=== PATIENT | male | born 1955 | race Caucasian/White ===

== ENCOUNTER 2017-07-15 16:29 | Emergency (ER) | payer OTHER ==
[~2017-07-15] VITALS: Ht 167.6 cm; Wt 80.0 kg
[2017-07-15 16:31] VITALS: BP 132/81; PULSE 64; RESP 16; TEMP 98.4; O2SAT 98
[2017-07-15] MEDS ORDERED: BUSP10TA PO (18:18)
[2017-07-15] MEDS ORDERED: DONE5TAB7 PO (18:18)
[2017-07-15] MEDS ORDERED: BUPR100T4 PO (18:18)
[2017-07-15] MEDS ORDERED: CHOL100025 CHEW (18:18)
[2017-07-15] MEDS ORDERED: PRAM0.25 PO (18:22)
[2017-07-15] MEDS ORDERED: TRAM50TA PO (18:22)
[2017-07-15] MEDS ORDERED: DULO1CAP3 PO (18:22)
[2017-07-15] MEDS ORDERED: SIMV20TA PO (18:22)
[2017-07-15] MEDS ORDERED: FLUT50SP EACH NARE (18:22)
[2017-07-15] MEDS ORDERED: PREG300 PO (18:22)
[2017-07-15] MEDS ORDERED: REBI44IN SQ (18:22)
--- NOTE | 2017-07-15 18:28 | PD ---
HPI Chief Complaint: Head Injury Time Seen by Provider: 18:03 Travel History International Travel<30 days: No Contact w/Intl Traveler<30days: No Traveled to known affect area: No History of Present Illness HPI 62-year-old male presents for evaluation after mechanical fall. He reports that he stayed up late last night and at 3 in the morning he was sitting in a stool at home when he fell asleep. He fell to the ground and hit his head against the ground. He is complaining of a headache, mild neck pain and right shoulder pain. Pain is an aching pain which is constant, no aggravating or alleviating factors. He had some dizziness this morning without resolved. Denies any blurred vision, amnesia, nausea, vomiting, numbness tingling or weakness. He is not on any anticoagulants. He has no other complaints at this time. PFSH Past Medical History Autoimmune Disease: Yes (MULTIPLE SCLEROSIS) Anxiety: Yes Depression: Yes High Cholesterol: Yes Diabetes: Yes Patient Takes Glucophage: No GERD: Yes Medical other: Yes (KIDNEY DISEASE, BPH) Neurologic: Yes (PERIPHERAL NERVE DISEASE) Past Surgical History Surgical History: No Previous Surgery Social History Alcohol Use: No Tobacco Use: No Substance Use: No Allergies-Medications (Allergen,Severity, Reaction): Coded Allergies: No Known Allergies (Unverified , 07/15/17) Reported Meds & Prescriptions Reported Meds & Active Scripts Active Reported Tramadol (Tramadol HCl) 50 Mg Tab 50 Mg PO Q6H PRN Simvastatin 20 Mg Tab 20 Mg PO DAILY Lyrica (Pregabalin) 300 Mg Cap 300 Mg PO BID Pramipexole (Pramipexole Dihydrochloride) 0.25 Mg Tab 0.25 Mg PO HS Rebif Inj (Interferon Beta 1a) 44 Mcg/0.5 Ml Syr 44 Mcg SQ Fluticasone Nasal [place] 50 Mcg/Act Naspr 50 Mcg EACH NARE BID 50 mcg/spray Duloxetine DR (Duloxetine HCl) 60 Mg Capdr 60 Mg PO DAILY Donepezil 5 Mg Tab 5 Mg PO DAILY Vitamin D3 (Cholecalciferol) 1,000 Unit Chew 1,000 Units CHEW DAILY Buspirone (Buspirone HCl) 10 Mg Tab 20 Mg PO TID Bupropion HCl 100 Mg Tab 200 Mg PO BID Review of Systems Except as stated in HPI: all other systems reviewed are Neg Physical Exam Narrative GENERAL: Well-developed well-nourished male in no acute distress SKIN: Warm and dry. HEAD: Hematoma noted to the left forehead. Normocephalic. EYES: Pupils equal and round reactive to light extraocular muscles are intact. No scleral icterus. No injection or drainage. ENT: No nasal bleeding or discharge. Mucous membranes pink and moist. NECK: Trachea midline. No JVD. CARDIOVASCULAR: Regular rate and rhythm. No murmur appreciated. RESPIRATORY: No accessory muscle use. Clear to auscultation. Breath sounds equal bilaterally. GASTROINTESTINAL: Abdomen soft, non-tender, nondistended. Hepatic and splenic margins not palpable. MUSCULOSKELETAL: No obvious deformities. No tenderness to palpation to the neck and right shoulder joint with no obvious bruising or soft tissue swelling. The patient intends full range of motion of the upper extremity. He has some pain with range of motion activities of the right shoulder. NEUROLOGICAL: Awake and alert. No obvious cranial nerve deficits. Motor grossly within normal limits. Normal speech. PSYCHIATRIC: Appropriate mood and affect; insight and judgment normal. Data Data Last Documented VS Vital Signs Date Time Temp Pulse Resp B/P (MAP) Pulse Ox O2 Delivery O2 Flow Rate FiO2 07/15/17 16:31 98.4 64 16 132/81 (98) [address] Brain W/O Iv Contrast(Rout) (07/15/17 ) Shoulder, Complete (>2vws) (07/15/17 ) Ct Cerv Spine W/O Contrast (07/15/17 ) Ed Discharge Order (07/15/17 20:25) [facility] Medical Decision Making Medical Screen Exam Complete: Yes Emergency Medical Condition: Yes Medical Record Reviewed: Yes Differential Diagnosis Hematoma, contusion, skull fracture, intracranial hemorrhage Narrative Course CT imaging of the brain, cervical spine as well as right shoulder x-ray have been ordered. CT cervical spine CONCLUSION: 1. Subtle anterolisthesis of C3 on C4, likely due to facet arthrosis. 2. No acute fracture. 3. Advanced degenerative spondylosis of the lower cervical spine most prominently at C5-7. CT brain reveals no acute abnormalities. Right shoulder x-ray reveals no acute abnormalities. The patient is stable for discharge. Diagnosis Primary Impression: Cervical strain Additional Impression: Traumatic hematoma of forehead Additional Instructions: Ice the affected area several times a day 20 minutes at a time. Avoid strenuous activity. Follow-up with primary care physician as needed and return for any acutely new or worsening symptoms. Med/Other Pt SpecificInfo: No Change to Meds Disposition: 01 DISCHARGE HOME Condition: Stable Justin Leonard Jul 15, 2017 18:28
--- NOTE | 2017-07-15 18:40 | RADRPT ---
EXAM DATE/TIME: 07/15/2017 18:25 [facility] COMPARISON: No previous studies available for comparison. INDICATIONS : Right shoulder pain after fall off stool. MEDICAL HISTORY : None. SURGICAL HISTORY : None. ENCOUNTER: Initial ACUITY: 1 day PAIN SCORE: 10/10 LOCATION: Right shoulder. FINDINGS: Multiple view examination of the right shoulder demonstrates no evidence of fracture or dislocation. The glenohumeral and acromioclavicular joints are maintained. There is normal range of motion betwe en internal and external rotation. Bony mineralization is normal. CONCLUSION: 1. No acute fracture or dislocation. Augie Alford MD on July 15, 2017 at 18:37 Board Certified Radiologist. This report was verified electronically.
[2017-07-15 19:00] VITALS: BP 127/71; PULSE 72; RESP 18; O2SAT 99
--- NOTE | 2017-07-15 20:17 | RADRPT ---
EXAM DATE/TIME: 07/15/2017 19:36 [facility] COMPARISON: No previous studies available for comparison. INDICATIONS : Parient fell off sool onto floor hit,right frontal parital area,loss of consciousness,dizzy headache RADIATION DOSE: 47.43 CTDIvol (mGy) MEDICAL HISTORY : Peripheral nerve disease,diabetes,MS SURGICAL HISTORY : None. ENCOUNTER: Initial ACUITY: 1 day PAIN SCALE: 10/10 LOCATION: cranial TECHNIQUE: Multiple contiguous axial images were obtained of the head. Using automated exposure control and adj ustment of the mA and/or kV according to patient size, radiation dose was kept as low as reasonably a chievable to obtain optimal diagnostic quality images. DICOM format image data is available electro nically for review and comparison. FINDINGS: CEREBRUM: The ventricles are normal for age. No evidence of midline shift, mass lesion, hemorrhage or acute in farction. No extra-axial fluid collections are seen. POSTERIOR FOSSA: The cerebellum and brainstem are intact. The 4th ventricle is midline. The cerebellopontine angle i s unremarkable. EXTRACRANIAL: The visualized portion of the orbits is intact. SKULL: Prior right orbital wall hardware fixation. The calvaria is intact. No evidence of skull fracture. CONCLUSION: 1. No acute intracranial abnormality. Augie Alford MD on July 15, 2017 at 20:14 Board Certified Radiologist. This report was verified electronically.
--- NOTE | 2017-07-15 20:20 | RADRPT ---
EXAM DATE/TIME: 07/15/2017 19:36 [facility] COMPARISON: No previous studies available for comparison. INDICATIONS : Fell off stool on to ground RADIATION DOSE: 42.49 CTDIvol (mGy) MEDICAL HISTORY : Peripheral nerve disease,MS SURGICAL HISTORY : None. ENCOUNTER: Initial ACUITY: 1 day PAIN SCALE: 10/10 LOCATION: neck TECHNIQUE: Volumetric scanning of the cervical spine was performed. Multiplanar reconstructions i n the sagittal, coronal and oblique axial planes were performed. Using automated exposure control a nd adjustment of the mA and/or kV according to patient size, radiation dose was kept as low as reason ably achievable to obtain optimal diagnostic quality images. DICOM format image data is available e lectronically for review and comparison. FINDINGS: Vertebral body heights are maintained. Osseous structures are intact without evidence for acute bony fracture. Dens is intact. Loss of normal cervical lordosis. Subtle anterolisthesis of C3 on C4. There is a normal C1-2 relationship. Facets are normally aligned. There is no significant prevertebral sof t tissue hematoma. Advanced degenerative spondylosis of the lower cervical spine most prominently at C5-7 with significant disc space loss and posterior disc osteophytes. Mild bony central canal narrowi ng at these levels. Moderate bony bilateral neural foraminal narrowing as well. Multilevel facet arth ropathy. No significant cervical adenopathy or gross mass. The thyroid appears unremarkable. Visualiz ed lung apices are clear without pneumothorax. CONCLUSION: 1. Subtle anterolisthesis of C3 on C4, likely due to facet arthrosis. 2. No acute fracture. 3. Advanced degenerative spondylosis of the lower cervical spine most prominently at C5-7. Augie Alford MD on July 15, 2017 at 20:16 Board Certified Radiologist. This report was verified electronically.
== END 2017-07-15 20:45 | disposition home or self-care (01) ==
LOC: NEPC 16:29
DX: S16.1XXA Strain of muscle, fascia and tendon at neck level, initial encounter (principal); S00.83XA Contusion of other part of head, initial encounter; E78.00 Pure hypercholesterolemia, unspecified; W07.XXXA Fall from chair, initial encounter; Y93.84 Activity, sleeping; Y92.009 Unspecified place in unspecified non-institutional (private) residence as the place of occurrence of the external cause
CPT/HCPCS: 70450; 72125; 73030; 99284